=== PATIENT | male | born 1965 | race Caucasian/White ===

== ENCOUNTER 2022-04-01 08:58 | Observation (INO) ==
[2022-04-01 10:35] LABS: Basophils # 0.1 10*3/uL (0.0-0.2); Basophils % 0.5 % (0.0-0.8); Eosinophils # 0.5 10*3/uL (0.0-0.87); Eosinophils % 3.7 % (0.00-10.9); Hemoglobin 6.8 GM/DL (14.0-18.0); Immature Granulocytes % 4.4 %; Immature Granulocytes Absolute 0.59 #; Lymphocytes # 2.2 10*3/uL (1.4-4.0); Lymphocytes % 16.1 % (21.2-54.2); Mean Corpuscular HGB Conc 28.3 GM/DL (32-36); Mean Corpuscular Volume 77.7 FL (87-102); Mean Platelet Volume 9.3 FL (9.6-12.0); Monocytes # 0.9 10*3/uL (0.11-0.8); Monocytes % 6.5 % (1.7-12.7); NRBC # 0.15 10*3/uL; Neutrophils % 68.8 % (38.7-73.9); Platelet Count 610 T/CUMM (130-400); Red Blood Count 3.09 MC/CUMM (3.8-5.5); Red Cell Distribution Width 18.2 % (9.3-17.3); White Blood Count 13.4 T/CUMM (4-12)
[2022-04-01 10:50] LABS: INR 1.1; PT Patient Result 12.2 SECS (10.1-12.1); Partial Thromboplastin Time 27.8 SECS (23.7-32.9)
[2022-04-01 10:54] LABS: Eosinophils 4 % (0-10); Hypochromia 1+; Lymphocytes 21 % (20-55); Microcytosis 1+; Myelocytes 1 %; Nucleated Red Blood Cells 1 /100 WBC (0-5); Polychromasia Slight; Total Cells Counted 100
[2022-04-01 10:58] LABS: Alanine Aminotransferase 18 U/L (16-61); Albumin 3.4 G/DL (3.4-5.0); Alkaline Phosphatase 108 U/L (45-117); Aspartate Amino Transferase 13 U/L (0-37); Bilirubin,Total < 0.39 MG/DL (0.20-1.00); Blood Urea Nitrogen 18 MG/DL (7-18); Calcium 9.1 MG/DL (8.5-10.1); Carbon Dioxide 29 MMOL/L (21-32); Chloride 106 MMOL/L (98-107); Glucose 98 MG/DL (74-106); Osmolality,Calculated 278.5 MOS/KG (273-304); Potassium 4.2 MMOL/L (3.5-5.1); Sodium 139 MMOL/L (136-145); Total Protein 8.2 G/DL (6.4-8.2)
[2022-04-01 11:39] LABS: Barbiturates Screen,Urine Negative (Negative); Benzodiazepines Screen,Urine Negative (Negative); Cannabinoid Screen,Urine Negative (Negative); Opiate Screen,Urine Negative (Negative); Phencyclidine Screen,Urine Negative (Negative)
[2022-04-01 11:58] LABS: Folate 13.66 NG/ML (5.38-24.0)
[2022-04-01 12:01] LABS: Hepatitis B Core IgM Quant 0.13 Index; Hepatitis B Surface Ag Quant < 0.10 Index; Hepatitis B Surface Ag Result Non-Reactive (NonReactive); Hepatitis C Virus Ab Result Non-Reactive (NonReactive)
[2022-04-01] MEDS ORDERED: SODIUM CHLORIDE 0.9% 1,000 ML IV PRN (12:17)
[2022-04-01] MEDS ORDERED: NICOTINE 14 MG/24 HR PATCH TRANSDERM PRN (12:38)
[2022-04-01] MEDS ORDERED: ONDANSETRON 4 MG/2 ML VIAL IV PRN (12:40)
[2022-04-01] MEDS ORDERED: hydrALAZINE 20 MG/1 ML VIAL IV PRN (12:41)
[2022-04-01 12:50] LABS: % Iron Saturation 3.6 % (18-50)
[2022-04-01 12:54] LABS: Basophils # 0.1 10*3/uL (0.0-0.2); Basophils % 0.4 % (0.0-0.8); Eosinophils # 0.5 10*3/uL (0.0-0.87); Hematocrit 22.1 VOL% (42.0-52.0); Immature Granulocytes % 3.7 %; Immature Granulocytes Absolute 0.46 #; Lymphocytes # 2.2 10*3/uL (1.4-4.0); Lymphocytes % 17.8 % (21.2-54.2); Mean Corpuscular HGB Conc 27.6 GM/DL (32-36); Mean Corpuscular Volume 79.8 FL (87-102); Mean Platelet Volume 9.4 FL (9.6-12.0); Monocytes % 7.7 % (1.7-12.7); NRBC # 0.17 10*3/uL; Neutrophils % 66.4 % (38.7-73.9); Platelet Count 569 T/CUMM (130-400); Red Blood Count 2.77 MC/CUMM (3.8-5.5); Red Cell Distribution Width 18.2 % (9.3-17.3); White Blood Count 12.4 T/CUMM (4-12)
[2022-04-01 13:01] LABS: Hemoglobin 6.1 GM/DL (14.0-18.0)
[2022-04-01] MEDS ORDERED: ACETAMINOPHEN 325 MG TABLET PO PRN (13:11)
[2022-04-01 13:20] LABS: Folate 14.31 NG/ML (5.38-24.0); Vitamin B12 448 PG/ML (211-911)
[2022-04-01 13:24] LABS: Band Neutrophils 1 % (0-10); Eosinophils 3 % (0-10); Lymphocytes 15 % (20-55); Metamyelocytes 1 %; Nucleated Red Blood Cells 1 /100 WBC (0-5); Total Cells Counted 100
[2022-04-01 13:25] LABS: Hypochromia 1+; Microcytosis Slight
[2022-04-01 13:26] LABS: Platelet Estimate Increased; Polychromasia Few
[2022-04-01] MEDS: PANTOPRAZOLE 40 MG VIAL IV SCH ×2 (13:29→21:26)
[2022-04-01] MEDS: SODIUM CHLORIDE 0.9% 1,000 ML IV SCH (13:42)
[2022-04-01 14:03] LABS: Sedimentation Rate-Westergren 69 MM/HR (0-20)
[2022-04-01] MEDS ORDERED: LORazepam 2 MG/1 ML VIAL IV PRN (14:46)
[2022-04-01] MEDS: GABAPENTIN 600 MG TABLET PO SCH ×2 (15:57→21:24)
[2022-04-01] MEDS: busPIRone 15 MG TABLET PO SCH ×2 (15:57→21:24)
[2022-04-01 20:08] LABS: Hemoglobin 8.1 GM/DL (14.0-18.0)
[2022-04-01] MEDS ORDERED: MELATONIN 3 MG TABLET PO SCH (21:00)
[2022-04-02] MEDS: SODIUM CHLORIDE 0.9% 1,000 ML IV SCH ×2 (01:56→09:46)
[2022-04-02 05:53] LABS: Basophils # 0.1 10*3/uL (0.0-0.2); Basophils % 0.8 % (0.0-0.8); Eosinophils # 0.5 10*3/uL (0.0-0.87); Eosinophils % 3.9 % (0.00-10.9); Hematocrit 31.6 VOL% (42.0-52.0); Hemoglobin 9.3 GM/DL (14.0-18.0); Immature Granulocytes Absolute 0.24 #; Lymphocytes # 2.2 10*3/uL (1.4-4.0); Lymphocytes % 18.5 % (21.2-54.2); Mean Corpuscular HGB Conc 29.4 GM/DL (32-36); Mean Corpuscular Volume 80.2 FL (87-102); Mean Platelet Volume 10.2 FL (9.6-12.0); Monocytes # 0.9 10*3/uL (0.11-0.8); Monocytes % 7.8 % (1.7-12.7); NRBC # 0.17 10*3/uL; Platelet Count 491 T/CUMM (130-400); Red Blood Count 3.94 MC/CUMM (3.8-5.5); Red Cell Distribution Width 18.6 % (9.3-17.3); White Blood Count 11.9 T/CUMM (4-12)
[2022-04-02 06:12] LABS: Hypochromia 1+; Microcytosis 1+; Polychromasia Slight
[2022-04-02 06:13] LABS: Target Cells Slight
[2022-04-02 06:33] LABS: Albumin 3.3 G/DL (3.4-5.0); Bilirubin,Total 0.5 MG/DL (0.20-1.00); Calcium 9.4 MG/DL (8.5-10.1); Osmolality,Calculated 274.7 MOS/KG (273-304); Total Protein 8.2 G/DL (6.4-8.2)
[2022-04-02] MEDS ORDERED: risperiDONE 0.5 MG TABLET PO SCH (09:00)
[2022-04-02] MEDS ORDERED: DULoxetine 30 MG CAPSULE PO SCH (09:00)
[2022-04-02] MEDS ORDERED: predniSONE 20 MG TABLET PO SCH (09:30)
[2022-04-02] MEDS: GABAPENTIN 600 MG TABLET PO SCH (09:39)
[2022-04-02] MEDS: PANTOPRAZOLE 40 MG VIAL IV SCH (09:39)
[2022-04-02] MEDS: busPIRone 15 MG TABLET PO SCH (09:40)
[2022-04-02 11:02] LABS: Hemoglobin A1 (Alkaline) 98.2 % (96.5-98.5); Hemoglobin A2 (Alkaline) 1.8 % (1.5-3.5)
[2022-04-02 11:18] VITALS: BP 118/70
[2022-04-02] MEDS ORDERED: ALBUTEROL/IPRATROPIUM 3 ML NEB RESP TX SCH (13:00)
== END 2022-04-02 11:16 ==
LOC: N.ED 08:58 → INTOOBSV 12:16 → N.EDINP 12:16 → N.3E 13:45
PROVIDERS: ADMIT Internal Medicine; ATTEND Internal Medicine